=== PATIENT | male | born 1990 | race Caucasian/White ===

== ENCOUNTER 2017-12-29 17:56 | Emergency (ER) | payer BC ==
[~2017-12-29] VITALS: Ht 172.7 cm; Wt 81.6 kg
[2017-12-29] MEDS ORDERED: KETO15CR2 TP (18:28)
[2017-12-29] MEDS ORDERED: LORA-434 PO (18:28)
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
[2017-12-29 18:30] VITALS: BP 132/87
== END 2017-12-29 18:40 | disposition home or self-care (01) ==
LOC: ER 17:56
DX: F41.9 Anxiety disorder, unspecified (principal); B35.3 Tinea pedis; F17.220 Nicotine dependence, chewing tobacco, uncomplicated; Z88.1 Allergy status to other antibiotic agents; Z88.2 Allergy status to sulfonamides
CPT/HCPCS: 99284